=== PATIENT | female | born 1990 | race Caucasian/White ===

== ENCOUNTER 2017-03-06 10:18 | Emergency (ER) | payer SELFPAY ==
[~2017-03-06] VITALS: Ht 165.1 cm; Wt 65.8 kg
[2017-03-06 11:15] VITALS: BP 122/68
== END 2017-03-06 11:18 | disposition home or self-care (01) ==
LOC: ER 10:19
DX: T40.1X1A Poisoning by heroin, accidental (unintentional), initial encounter (principal); Y92.89 Other specified places as the place of occurrence of the external cause; E11.9 Type 2 diabetes mellitus without complications
CPT/HCPCS: 99283; A4606; Z7610